=== PATIENT | female | born 1995 | race Caucasian/White ===

== ENCOUNTER 2022-05-19 20:28 | Emergency (ER) | payer OTHER | END 2022-05-19 21:46 | disposition home or self-care (01) | LOC: MW.ED 20:28 | DX: G40.509 Epileptic seizures related to external causes, not intractable, without status epilepticus (principal); T42.6X5A Adverse effect of other antiepileptic and sedative-hypnotic drugs, initial encounter | CPT/HCPCS: 96374; 99283; J1953 ==